=== PATIENT | female | born 1990 ===

== ENCOUNTER 2017-06-01 18:32 | Inpatient (IN) ==
[2017-06-01] MEDS ORDERED: ONDANSETRON 4 MG/2 ML VIAL IV PRN (20:09)
[2017-06-01] MEDS ORDERED: ACETAMINOPHEN 325 MG TABLET PO PRN (20:09)
[2017-06-01] MEDS ORDERED: miSOPROStol 200 MCG TABLET RECTAL ONE (21:00)
[2017-06-01] MEDS: DEXTROSE 5% LACTATED RINGERS 1,000 ML IV SCH (21:46)
[2017-06-02] MEDS: DEXTROSE 5% LACTATED RINGERS 1,000 ML IV SCH (05:28)
[2017-06-02] MEDS ORDERED: IBUPROFEN 800 MG TABLET ONE (15:23)
[2017-06-02] MEDS ORDERED: IBUPROFEN 800 MG TABLET PO PRN (15:23)
[2017-06-02 16:00] VITALS: BP 128/81
== END 2017-06-02 17:00 | disposition home or self-care (01) | DRG 779 ==
LOC: N.LDOUT 18:32 → N.LD 18:33 → EDSTATUS 18:46 → N.EDINP 20:09 → N.OB 20:58
PROVIDERS: ADMIT Obstetrics & Gynecology; ATTEND Obstetrics & Gynecology